=== PATIENT | male | born 1985 | race Caucasian/White ===

== ENCOUNTER 2017-11-15 09:12 | Outpatient (CLI) | payer BC | END 2017-11-15 09:13 | disposition home or self-care (01) | LOC: BICULT 09:12 | PROVIDERS: ATTEND Family Medicine | DX: R10.11 Right upper quadrant pain (principal) | CPT/HCPCS: 76705 ==

== ENCOUNTER 2018-05-24 07:24 | Outpatient (CLI) | payer BC ==
--- NOTE | 2018-05-24 12:03 | NM ---
NUCLEAR MEDICINE HEPATOBILIARY SCAN WITH EJECTION FRACTION: Date: 05/24/18 HISTORY: Right upper quadrant pain. TECHNIQUE/FINDINGS: Patient was injected with 5 mCi technetium-99m mebrofenin intravenously. There is prompt uptake of th e tracer by the liver with rapid excretion into the biliary tree and gallbladder, and emptying into t he bowel. At the 60 minute time interval, the patient was given 8 oz. of Ensure. Gallbladder ejection fraction is 68%, which is normal. IMPRESSION: Normal nuclear medicine hepatobiliary scan and ejection fraction. POS: [facility]
== END 2018-05-24 07:25 | disposition home or self-care (01) ==
LOC: NM 07:24
PROVIDERS: ATTEND Internal Medicine
DX: R10.11 Right upper quadrant pain (principal)
CPT/HCPCS: 78227; A9537

== ENCOUNTER 2021-11-17 17:30 | Outpatient (CLI) | payer BC | END 2021-11-17 17:31 | disposition home or self-care (01) | LOC: SLEEPLAB 17:30 | PROVIDERS: ATTEND Family Medicine | DX: G47.10 Hypersomnia, unspecified (principal); G47.9 Sleep disorder, unspecified; R53.83 Other fatigue; R06.83 Snoring; G47.00 Insomnia, unspecified; D45 Polycythemia vera | CPT/HCPCS: 95800 ==